=== PATIENT | male | born 1945 | race Caucasian/White ===

== ENCOUNTER 2018-12-26 09:35 | Emergency (ER) | payer OTHER ==
[~2018-12-26] VITALS: Ht 182.9 cm; Wt 122.5 kg
[2018-12-26] MEDS ORDERED: NORVASC5 M1 PO (09:37)
[2018-12-26] MEDS ORDERED: TENORMIN25 MG PO (09:37)
[2018-12-26] MEDS ORDERED: BENZAPRIL (09:39)
[2018-12-26] MEDS ORDERED: KEFLEX500 M1 PO (09:50)
[2018-12-26] MEDS ORDERED: PREDNISONE 10 M10 M1 PO (09:50)
[2018-12-26] MEDS ORDERED: MEDROLDOSEPACK PO (09:51)
[2018-12-26] MEDS ORDERED: MICROZIDE12.5 MG PO (09:56)
[2018-12-26 11:46] LABS: ABSOLUTE NEUTROPHILS 4.5 thou/uL (1.4-8.2); BASOPHILS 1.1 % (0.0-2.0); EOSINOPHILS 4.3 % (0.0-3.0); HEMATOCRIT 49.2 % (42.0-52.0); HEMOGLOBIN 16.7 gm/dL (14.0-18.0); LYMPHOCYTES 23.4 % (24.0-44.0); MCH 30.4 pg (26.0-34.0); MCHC 33.9 g/dL (28.0-37.0); MCV 89.7 fL (80.0-100.0); MONOCYTES 10.7 % (1.0-8.0); PLATELET COUNT 251 thou/uL (150-400); POLYS 60.5 % (36.0-66.0); RBC 5.49 mil/uL (4.50-6.00); RDW 14.5 % (10.5-14.5); WBC 7.4 thou/uL (4.0-11.0)
[2018-12-26 12:28] VITALS: BP 148/77
== END 2018-12-26 12:30 | disposition home or self-care (01) ==
LOC: ER 09:35
PROVIDERS: Emergency Medicine
DX: L30.9 Dermatitis, unspecified (principal); I10 Essential (primary) hypertension